=== PATIENT | female | born 1985 | race Caucasian/White ===

== ENCOUNTER 2016-10-23 16:47 | Emergency (ER) | payer OTHER ==
[~2016-10-23 16:47] MED LIST: HYDR-971 PO; METR500T PO; NITR100C62 PO; NORE5TAB PO; OMEP20CA5 PO; depo
[2016-10-23 17:19] VITALS: BP 114/76
--- NOTE | 2016-10-23 18:04 | PHYS DOC ---
Past Medical History Past Medical History: Endometriosis, Other Additional Past Medical Histor: HEADACHE HX, ENDOMETREOSIS Past Surgical History: Additional Past Surgical Histo: LAPROSCOPIC SURGERIES FOR ENDOMETRIOSIS Alcohol Use: Rarely Drug Use: None Adult General Chief Complaint Chief Complaint: HAND PROBLEM HPI HPI Patient is a 31 year old female who presents with mild right hand pain with swelling that began a week ago after she hit her right hand on a mirror. Patient denies falling. She is 9 months . She would like x-ray of the right hand. Review of Systems Review of Systems Constitutional: Denies fever or chills [] Musculoskeletal: Right hand pain and swelling Integument: Denies rash or skin lesions [] Neurologic: Denies headache, focal weakness or sensory changes [] Endocrine: Denies polyuria or polydipsia [] Allergies Allergies Allergies Coded Allergies Type Severity Reaction Last Updated Verified NSAIDS (Non-Steroidal Anti-Inflamma Allergy Intermediate hives 04/04/15 Yes ciprofloxacin Allergy Intermediate hives 04/04/15 Yes ciprofloxacin HCl Allergy Intermediate hives 04/04/15 Yes morphine Allergy Intermediate hives 04/04/15 Yes Physical Exam Physical Exam Constitutional: Well developed, well nourished, no acute distress, non-toxic appearance. [] Abdomen: Gravid abdomen Skin: See extremity] Back: No tenderness, no CVA tenderness. [] Extremities: Right hand with mild soft tissue swelling along the 5th metacarpal. Tenderness on palpation of the right hand fifth metacarpal. Limited range of motion to the right hand pinky finger due to pain. Cap refill less than 2 seconds the right hand. Adequate ulna radial and medial sensation to the right hand. +2 right radial pulse. Cap refill less than 2 seconds the right upper extremity. Sensation intact to the right upper extremity. Neurologic: Alert and oriented X 3, normal motor function, normal sensory function, no focal deficits noted. [] Psychologic: Affect normal, judgement normal, mood normal. [] Current Patient Data Vital Signs Vital Signs Date Time Temp Pulse Resp B/P Pulse Ox O2 Delivery O2 Flow Rate FiO2 10/23/16 17:19 98.5 97 18 95 Room Air 98.5 EKG EKG [] Radiology/Procedures Radiology/Procedures [] Course & Med Decision Making Course & Med Decision Making Pertinent Labs and Imaging studies reviewed. (See chart for details) Patient is in the ED with right hand pain after hitting a mirror a week ago. Right hand x-ray interpreted by Dr. Martinez is noted for fracture of the fifth metacarpal, patient was placed in an ulnar gutter splint by the time study technician, neurovascular exam done by me is normal. Cap refill less than 2 seconds. Ice elevation encouraged. She is 9 months . She was instructed to take Tylenol for pain. Follow-up with orthopedic doctor as soon as possible. Dragon Disclaimer Dragon Disclaimer This electronic medical record was generated, in whole or in part, using a voice recognition dictation system. Departure Departure Impression: Primary Impression: Fracture of fifth metacarpal bone of right hand Disposition: HOME, SELF-CARE Condition: STABLE Referrals: NO PCP (PCP) JANIE OLVERA MD Follow-up with Dr. Olvera, call the office tomorrow and get an appointment as soon as possible Patient Instructions: Hand Fracture, Metacarpals Additional Instructions: You were seen for right hand metacarpal fracture. Call Dr. Olvera the orthopedic doctor's office tomorrow to get a follow-up appointment. You're , take Tylenol as needed for pain. Keep the hand iced and elevated. Problem Qualifiers Primary Impression: Fracture of fifth metacarpal bone of right hand Encounter type: initial encounter Fracture type: closed Metacarpal location : unspecified portion of metacarpal Fracture alignment: displaced Qualified Code: S62.306A - Unspecified fracture of fifth metacarpal bone, right hand, initial encounter for closed fracture KINZA BERNAL APRN Oct 23, 2016 18:04
--- NOTE | 2016-10-24 08:11 | RAD ---
Right hand, 3 views, 10/23/2016: History: Hand pain, injury There is a fracture of the distal fifth metacarpal. There is mild volar and radial angulation of the distal fracture fragment. No other fracture or dislocation is identified. IMPRESSION: Boxer's type fracture of the distal fifth metacarpal.
== END 2016-10-23 18:33 | disposition home or self-care (01) ==
LOC: ER 16:47
DX: O9A.213 Injury, poisoning and certain other consequences of external causes complicating pregnancy, third trimester (principal); S62.306A Unspecified fracture of fifth metacarpal bone, right hand, initial encounter for closed fracture; Z3A.00 Weeks of gestation of pregnancy not specified; Z88.1 Allergy status to other antibiotic agents; Z88.5 Allergy status to narcotic agent; Z88.8 Allergy status to other drugs, medicaments and biological substances; W22.8XXA Striking against or struck by other objects, initial encounter; Y93.89 Activity, other specified; Y92.89 Other specified places as the place of occurrence of the external cause; Y99.8 Other external cause status
CPT/HCPCS: 29125; 73130; 99284-25

== ENCOUNTER 2017-04-10 00:24 | Emergency (ER) | payer OTHER ==
[~2017-04-10] VITALS: Ht 162.6 cm; Wt 72.6 kg
[~2017-04-10 00:24] MED LIST changes: +OXYC-323 PO; +PANT40TA5 PO; +PNV1TABL25 PO; +TRAM50TA PO
--- NOTE | 2017-04-10 00:27 | PHYS DOC ---
Past Medical History Past Medical History: Endometriosis, Other Additional Past Medical Histor: HEADACHE HX, ENDOMETREOSIS Past Surgical History: Additional Past Surgical Histo: LAPROSCOPIC SURGERIES FOR ENDOMETRIOSIS Alcohol Use: Rarely Drug Use: None Adult General Chief Complaint Chief Complaint: VAGINAL BLEEDING HPI HPI Patient is a 31 year old female who presents with breathing has. She states she had the same thing happen approximately 6 months after her son was born and now she is 5 months . She states she has a history of fibromyalgia and was on oral contraceptives but hasn't been back to her OB to start this as of yet. She denies any lightheadedness dizziness, but states she's been feeling really tired and has a lot of menstrual cramps. She states she's been bleeding for 3 weeks and is been anywhere from 3-8 pads per day. She denies any shortness of breath, chest pain. Review of Systems Review of Systems Constitutional: Denies fever or chills [] Eyes: Denies change in visual acuity, redness, or eye pain [] HENT: Denies nasal congestion or sore throat [] Respiratory: Denies cough or shortness of breath [] Cardiovascular: No additional information not addressed in HPI [] GI: Denies abdominal pain, nausea, vomiting, bloody stools or diarrhea [] : Denies dysuria or hematuria [] Musculoskeletal: Denies back pain or joint pain [] Integument: Denies rash or skin lesions [] Neurologic: Denies headache, focal weakness or sensory changes [] Endocrine: Denies polyuria or polydipsia [] Allergies Allergies Allergies Coded Allergies Type Severity Reaction Last Updated Verified NSAIDS (Non-Steroidal Anti-Inflamma Allergy Intermediate hives 04/04/15 Yes ciprofloxacin Allergy Intermediate hives 04/04/15 Yes ciprofloxacin HCl Allergy Intermediate hives 04/04/15 Yes morphine Allergy Intermediate hives 04/04/15 Yes Physical Exam Physical Exam Constitutional: Well developed, well nourished, no acute distress, non-toxic appearance. [] HENT: Normocephalic, atraumatic, bilateral external ears normal, oropharynx moist, no oral exudates, nose normal. [] Eyes: PERRLA, EOMI, conjunctiva normal, no discharge. [] Neck: Normal range of motion, no tenderness, supple, no stridor. [] Cardiovascular:Heart rate regular rhythm, no murmur [] Lungs & Thorax: Bilateral breath sounds clear to auscultation [] Abdomen/genital exam: Bowel sounds normal, soft, no tenderness, no masses, no pulsatile masses. No external genitalia, no blood in the vault, no cervical motion tenderness, no discharge noted Skin: Warm, dry, no erythema, no rash. [] Back: No tenderness, no CVA tenderness. [] Extremities: No tenderness, no cyanosis, no clubbing, ROM intact, no edema. [] Neurologic: Alert and oriented X 3, normal motor function, normal sensory function, no focal deficits noted. [] Psychologic: Affect normal, judgement normal, mood normal. [] Current Patient Data Vital Signs Vital Signs Date Time Temp Pulse Resp B/P (MAP) Pulse Ox O2 Delivery O2 Flow Rate FiO2 04/10/17 00:55 98.6 98 18 143/84 (103) 99 Room Air 98.6 Lab Values Laboratory Tests Test 04/09/17 23:53 04/10/17 00:55 04/10/17 01:38 POC Urine HCG, Qualitative Hcg negative (Negative) Urine Collection Type Unknown Urine Color Yellow Urine Clarity Clear Urine pH 6.5 Urine Specific Mack 1.020 Urine Protein Negative mg/dL (NEG-TRACE) Urine Glucose (UA) Negative mg/dL (NEG) Urine Ketones (Stick) Negative mg/dL (NEG) Urine Blood Negative (NEG) Urine Nitrite Negative (NEG) Urine Bilirubin Negative (NEG) Urine Urobilinogen Dipstick 0.2 mg/dL (0.2 mg/dL) Urine Leukocyte Esterase Small (NEG) Urine RBC Occ /HPF (0-2) Urine WBC 5-10 /HPF (0-4) Urine Squamous Epithelial Cells Few /LPF Urine Bacteria 0 /HPF (0-FEW) Urine Mucus Slight /LPF White Blood Count 7.3 x10^3/uL (4.0-11.0) Red Blood Count 4.48 x10^6/uL (3.50-5.40) Hemoglobin 13.6 g/dL (12.0-15.5) Hematocrit 40.6 % (36.0-47.0) Mean Corpuscular Volume 91 fL (79-100) Mean Corpuscular Hemoglobin 30 pg (25-35) Mean Corpuscular Hemoglobin Concent 33 g/dL (31-37) Red Cell Distribution Width 13.0 % (11.5-14.5) Platelet Count 253 x10^3/uL (140-400) Neutrophils (%) (Auto) 43 % (31-73) Lymphocytes (%) (Auto) 51 % (24-48) H Monocytes (%) (Auto) 4 % (0-9) Eosinophils (%) (Auto) 1 % (0-3) Basophils (%) (Auto) 1 % (0-3) Neutrophils # (Auto) 3.2 x10^3uL (1.8-7.7) Lymphocytes # (Auto) 3.7 x10^3/uL (1.0-4.8) Monocytes # (Auto) 0.3 x10^3/uL (0.0-1.1) Eosinophils # (Auto) 0.1 x10^3/uL (0.0-0.7) Basophils # (Auto) 0.1 x10^3/uL (0.0-0.2) Prothrombin Time 13.9 SEC (11.7-14.0) Prothrombin Time INR 1.1 (0.8-1.1) PTT 31 SEC (24-38) Sodium Level 141 mmol/L (136-145) Potassium Level 3.6 mmol/L (3.5-5.1) Chloride Level 106 mmol/L (98-107) Carbon Dioxide Level 27 mmol/L (21-32) Anion Gap 8 (6-14) Blood Urea Nitrogen 9 mg/dL (7-20) Creatinine 0.7 mg/dL (0.6-1.0) Estimated GFR (Cockcroft-Gault) 98.9 BUN/Creatinine Ratio 13 (6-20) Glucose Level 85 mg/dL (70-99) Calcium Level 8.4 mg/dL (8.5-10.1) L Total Bilirubin 0.3 mg/dL (0.2-1.0) Aspartate Amino Transferase (AST) 12 U/L (15-37) L Alanine Aminotransferase (ALT) 18 U/L (14-59) Alkaline Phosphatase 80 U/L (46-116) Total Protein 6.8 g/dL (6.4-8.2) Albumin 4.0 g/dL (3.4-5.0) Albumin/Globulin Ratio 1.4 (1.0-1.7) Serum Test, Qualitative Negative (NEG) Laboratory Tests 04/10/17 01:38 Laboratory Tests 04/10/17 01:38 Microbiology 04/10/17 Wet Prep - Final, Complete Microbiology 04/10/17 Wet Prep - Final, Complete EKG EKG [] Radiology/Procedures Radiology/Procedures [] Impressions: Dysfunctional uterine bleeding Course & Med Decision Making Course & Med Decision Making Pertinent Labs and Imaging studies reviewed. (See chart for details) RUN DATE: 04/10/17 PAGE 1 RUN TIME: 156 [facility] [address] [place] [address] Yonatan Bueno M.D., [employer]cher PATIENT: IRINA FERNANDO ACCT: [id number] LOC: [facility] U : [id number] AGE/SX: 31/F ROOM: REG : 04/10/[address]: BELINDA MARCUS MD : 1985 BED: DIS : STATUS: REG ER TLOC: SPEC #: [id number] [place]: 04/10/17 STATUS: COMP REQ #: [id number] RECD: 04/10/[address]: BELINDA MARCUS MD SOURCE: VAGINAL ENTR: 04/10/[address]: JAE PCP SPDESC: ORDERED: WET PREP COMMENTS: Has specimen been collected/obtained? Y Procedure Result WET PREP Final YEAST NONE SEEN TRICHOMONAS NONE SEEN CLUE CELLS NONE SEEN WBCS MODERATE RBCS NO RBCS SEEN SQUAMOUS EPS FEW Labs show any acute abnormality's. In addition to her pelvic exam. Spoke with Dr. Argueta recommend Provera 5 mg twice a day until follow-up with her clinic which is approximately 2 weeks. She is agreeable Plan B discharged with this prescription return precautions given for worsening bleeding, lightheadedness dizziness or other concerns. END OF REPORT Dragon Disclaimer Dragon Disclaimer This electronic medical record was generated, in whole or in part, using a voice recognition dictation system. Departure Departure Impression: Primary Impression: Dysfunctional uterine bleeding Disposition: 01 HOME, SELF-CARE Condition: STABLE Referrals: NO PCP (PCP) Patient Instructions: Uterine Bleeding, Dysfunctional, [id number] Additional Instructions: Your labs did not show any acute abnormality's. Your being discharged with a prescription for your bleeding. Please take this medicine and follow-up with her primary [employer] physician. Return ER for severe pain, lightheadedness dizziness, nausea or shortness of breath, chest pain or other concerns. You will need to follow-up with your other tests as they do take 4-5 days for the results to return. Scripts Medroxyprogesterone Acetate (PROVERA) 5 Mg Tablet 5 MG PO BID, #28 TAB Prov: BELINDA MARCUS MD 04/10/17 BELINDA MARCUS MD Apr 10, 2017 00:27
[2017-04-10 00:55] VITALS: BP 143/84
[2017-04-10 01:00] LABS: BILIRUBIN,URINE NEGATIVE (NEG); GLUCOSE,URINE NEGATIVE (NEG); NITRITE,URINE NEGATIVE (NEG); PH,URINE 6.5; PROTEIN,URINE NEGATIVE (NEG-TRACE); UROBILINOGEN,URINE 0.2 mg/dL (0.2 mg/dL)
[2017-04-10 01:09] LABS: BACTERIA,URINE 0 /HPF (0-FEW); RBC,URINE OCC /HPF (0-2); SQUAMOUS EPITHELIAL CELL,UR FEW /LPF
[2017-04-10 01:46] LABS: BASO # 0.1 x10^3/uL (0.0-0.2); BASO % 1 % (0-3); EOS % 1 % (0-3); HEMATOCRIT 40.6 % (36.0-47.0); HEMOGLOBIN 13.6 g/dL (12.0-15.5); LYMPH # 3.7 x10^3/uL (1.0-4.8); LYMPH % 51 % (24-48); MEAN CORPUSCULAR HEMOGLOBIN 30 pg (25-35); MEAN CORPUSCULAR HGB CONC 33 g/dL (31-37); MEAN CORPUSCULAR VOLUME 91 fL (79-100); MONO % 4 % (0-9); NEUT % 43 % (31-73); PLATELET COUNT 253 x10^3/uL (140-400); RED BLOOD COUNT 4.48 x10^6/uL (3.50-5.40); WHITE BLOOD COUNT 7.3 x10^3/uL (4.0-11.0)
[2017-04-10 01:58] LABS: CALCIUM 8.4 mg/dL (8.5-10.1); CREATININE 0.7 mg/dL (0.6-1.0); GFR 98.9; NEG OBC SER NEG; POS OBC SER POS; POTASSIUM 3.6 mmol/L (3.5-5.1)
[2017-04-10 02:04] LABS: ALBUMIN/GLOBULIN RATIO 1.4 (1.0-1.7); TOTAL BILIRUBIN 0.3 mg/dL (0.2-1.0); TOTAL PROTEIN 6.8 g/dL (6.4-8.2)
[2017-04-10 02:05] LABS: INR 1.1 (0.8-1.1); PROTHROMBIN TIME PATIENT 13.9 SEC (11.7-14.0)
[2017-04-10] MEDS ORDERED: MEDR5TAB PO ×2 (04:08→04:12)
== END 2017-04-10 04:26 | disposition home or self-care (01) ==
LOC: ER 00:24
DX: N93.8 Other specified abnormal uterine and vaginal bleeding (principal); M79.7 Fibromyalgia; Z88.6 Allergy status to analgesic agent; Z88.1 Allergy status to other antibiotic agents; Z88.5 Allergy status to narcotic agent
CPT/HCPCS: 36415; 80053; 81001; 81025; 84703; 85027; 85610; 85730; 87086; 87491; 87591; 99284; Q0111

== ENCOUNTER 2017-11-05 17:17 | Emergency (ER) | payer OTHER | END 2017-11-05 18:40 | disposition home or self-care (01) | LOC: ER 17:17 | DX: K08.89 Other specified disorders of teeth and supporting structures (principal); R68.84 Jaw pain; Z88.1 Allergy status to other antibiotic agents; Z88.5 Allergy status to narcotic agent; Z88.6 Allergy status to analgesic agent | CPT/HCPCS: 99283 ==

== ENCOUNTER 2019-05-08 09:44 | Emergency (ER) | payer MEDICAID, OTHER ==
[~2019-05-08] VITALS: Ht 162.6 cm; Wt 77.1 kg
[~2019-05-08 09:44] MED LIST changes: +ACET1TAB33 PO; +AMOX875T PO; +DOXY100T PO; +HYDR-3164 PO; -HYDR-971 PO; +MEDR5TAB PO; -OXYC-323 PO; +OXYC1TAB15 PO; -PANT40TA5 PO; +PANT40TA77 PO; +SULF1TAB23 PO
[2019-05-08 10:40] VITALS: BP 182/78
[2019-05-08] MEDS ORDERED: CYCLOBENZAPRINE 10 MG TABLET. PO ONE (10:45)
[2019-05-08] MEDS ORDERED: HYDR-3164 PO (10:58)
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
== END 2019-05-08 11:05 | disposition home or self-care (01) ==
LOC: ER 09:44
DX: S40.021A Contusion of right upper arm, initial encounter (principal); S05.12XA Contusion of eyeball and orbital tissues, left eye, initial encounter; S00.511A Abrasion of lip, initial encounter; Z88.8 Allergy status to other drugs, medicaments and biological substances; Z88.1 Allergy status to other antibiotic agents; Z88.5 Allergy status to narcotic agent; Z98.890 Other specified postprocedural states; W50.0XXA Accidental hit or strike by another person, initial encounter; Y93.89 Activity, other specified; Y92.039 Unspecified place in apartment as the place of occurrence of the external cause; Y99.8 Other external cause status
CPT/HCPCS: 99283